=== PATIENT | male | born 1995 | race Caucasian/White ===

== ENCOUNTER 2017-09-14 21:26 | Emergency (ER) | payer OTHER ==
[~2017-09-14] VITALS: Ht 188 cm; Wt 89.0 kg
[2017-09-14 21:28] VITALS: BP 164/83; PULSE 88; RESP 18; TEMP 98.5; O2SAT 99
[2017-09-14] MEDS ORDERED: IBUPROFEN 600 MG TAB PO ONE (22:30)
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
[2017-09-14] MEDS ORDERED: TRAM50 PO (23:38)
== END 2017-09-14 23:42 | disposition home or self-care (01) ==
LOC: NEPD 21:26
DX: S62.501A Fracture of unspecified phalanx of right thumb, initial encounter for closed fracture (principal); V43.52XA Car driver injured in collision with other type car in traffic accident, initial encounter
CPT/HCPCS: 73130; 99283; L3260; L3808

== ENCOUNTER 2017-09-16 16:02 | Emergency (ER) | payer OTHER ==
[~2017-09-16] VITALS: Ht 190.5 cm; Wt 90.0 kg
[~2017-09-16 16:02] MED LIST: TRAM50 PO
[2017-09-16 16:04] VITALS: BP 169/74; PULSE 66; RESP 18; TEMP 98.8; O2SAT 97
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
[2017-09-16] MEDS ORDERED: ROBA750T PO (18:22)
[2017-09-16] MEDS ORDERED: IBUP-232 PO (18:22)
== END 2017-09-16 18:29 | disposition home or self-care (01) ==
LOC: NEPD 16:02
DX: S16.1XXA Strain of muscle, fascia and tendon at neck level, initial encounter (principal); V89.2XXA Person injured in unspecified motor-vehicle accident, traffic, initial encounter
CPT/HCPCS: 72040; 99283